=== PATIENT | female | born 1950 | race Two or more races ===

== ENCOUNTER 2023-11-21 12:13 | Emergency (ER) | payer OTHER ==
[~2023-11-21] VITALS: Ht 160 cm; Wt 72.9 kg
[2023-11-21 12:33] VITALS: BP 131/77; RESP 18; O2SAT 97
[2023-11-21 14:59] VITALS: PULSE 62
== END 2023-11-21 15:25 | disposition home or self-care (01) ==
LOC: ER 12:13
DX: S39.011A Strain of muscle, fascia and tendon of abdomen, initial encounter (principal); E78.5 Hyperlipidemia, unspecified; X58.XXXA Exposure to other specified factors, initial encounter; Y93.89 Activity, other specified; Y92.89 Other specified places as the place of occurrence of the external cause; Y99.8 Other external cause status
CPT/HCPCS: 82962; 93005